=== PATIENT | male | born 1930 | race Caucasian/White ===

== ENCOUNTER 2018-10-11 14:58 | Outpatient (CLI) | payer MEDICARE, BC ==
--- NOTE | 2018-10-11 15:09 | RAD ---
TWO VIEWS LUMBAR SPINE: History: Follow up L1 fracture. Comparison: None. FINDINGS: There is a compression fracture at L1 with severe loss of vertebral body height. Note, there are six lumbar type vertebral bodies. L2 to L6 demonstrates preservation of vertebral body height. No additio nal fractures are appreciated. Atherosclerosis of the aorta is identified. 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 IMPRESSION: Severe compression fracture at L1. POS: [facility]
== END 2018-10-11 14:59 | disposition home or self-care (01) ==
LOC: TBSIIMAG 14:58
PROVIDERS: ATTEND Neurological Surgery
DX: M54.5 Low back pain (principal); M48.56XA Collapsed vertebra, not elsewhere classified, lumbar region, initial encounter for fracture
CPT/HCPCS: 72100